=== PATIENT | female | born 1975 | race Caucasian/White ===

== ENCOUNTER → 2016-12-04 | Outpatient (CLI) | payer OTHER ==
[~2016-12-04] MED LIST: ACET50TA PO; DIBU0.5O TOP; DOCU10CA PO; IBUP80TA PO; VITAPRTA PO
--- NOTE | 2016-12-04 09:12 | REP ---
Clinical: Follow-up pulmonary nodules. Comparison: 01/24/2016, 06/06/2016. Findings: The small 5 mm subpleural nodule in the right upper lobe (image 53), and smaller 2 mm and 4 mm nodules in the anterior right upper lobe (image 58) appear less conspicuous and partially calcified suggesting chronic change. The remainder of lung de [place] cruz are well-aerated, symmetric, and clear. No further consolidation, nodule or mass lesion is appreciated. No pleural effusion/reaction or pneumothorax. Tracheobronchial tree is patent. No obvious adenopathy. Mediastinum appears normal by noncontrast evaluation. Surrounding musculoskeletal structures are intact. Impression: Previously identified right upper lobe nodules now appear minimally calcified and less conspicuous suggesting benign chronic changes. No new, significant mediastinal or pleuroparenchymal process appreciated. Signed by Eze Elliott MD 12/04/2016 09:04 A
== END ==
LOC: M RAD 08:23
PROVIDERS: ATTEND Internal Medicine Pulmonary Disease
DX: R91.8 Other nonspecific abnormal finding of lung field (principal)

== ENCOUNTER → 2017-09-02 | Outpatient (CLI) | payer OTHER ==
--- NOTE | 2017-09-02 13:24 | REP ---
Clinical: Follow-up pulmonary nodules. Comparison: 12/04/2016, 06/06/2016. Findings: Few small 2-3 mm nodules in the right middle lobe are again identified which remain stable and demonstrate small amounts of calcification suggesting chronic change related to granulomas disease. No new, acute, or significant nodule, consolidation or mass lesion. No pleural effusion/reaction or pneumothorax. Tracheobronchial tree is patent. No adenopathy. Mediastinum demonstrates normal thoracic aorta and heart/pericardium. Surrounding musculoskeletal structures are intact. Impression: A few 2-3 mm nodules in the right middle lobe remains stable and demonstrate small amount of calcification suggesting chronic changes related to prior granulomas disease. No significant mediastinal or pleuroparenchymal process noted. Signed by Eze Elliott MD 09/02/2017 01:15 P
== END ==
LOC: M RAD 12:46
PROVIDERS: ATTEND Internal Medicine Pulmonary Disease
DX: R91.8 Other nonspecific abnormal finding of lung field (principal)

== ENCOUNTER → 2018-03-04 | Outpatient (CLI) | payer OTHER | LOC: M RAD 10:26 | DX: R91.8 Other nonspecific abnormal finding of lung field (principal) | CPT/HCPCS: 71250 ==

== ENCOUNTER → 2018-07-25 | Outpatient (CLI) | payer OTHER | LOC: M RAD 10:52 | DX: N63.11 Unspecified lump in the right breast, upper outer quadrant (principal) | CPT/HCPCS: 77065 ==

== ENCOUNTER → 2018-08-04 | Outpatient (CLI) | payer OTHER ==
[~2018-08-04] MED LIST changes: -ACET50TA PO; -DIBU0.5O TOP; -DOCU10CA PO; -IBUP80TA PO; +LIDOCAINE 1% MDV 20ML VIAL As Ordered; -VITAPRTA PO
== END ==
LOC: M RADPRO 12:27
DX: D24.2 Benign neoplasm of left breast (principal)
CPT/HCPCS: 19083

== ENCOUNTER → 2019-04-13 | Outpatient (REF) | payer OTHER ==
[~2019-04-13] MED LIST changes: +DIBU0.5O TOP; +DOCU10CA PO; +IBUP80TA PO; -LIDOCAINE 1% MDV 20ML VIAL As Ordered; +MAPA500T2 PO; +VITAPRTA PO
[2019-04-16 14:24] LABS: HPV HYBRID CAPTURE II Negative (Negative)
== END ==
LOC: M LAB LCGH 13:25
PROVIDERS: ATTEND Family Medicine
DX: Z12.4 Encounter for screening for malignant neoplasm of cervix (principal)
CPT/HCPCS: 87624; G0123

== ENCOUNTER → 2019-07-08 | Outpatient (CLI) | payer OTHER ==
[2019-07-08 13:25] LABS: BASO % 0.8 % (0.0-1.0); EOS # 0.1 10^3/uL (0.0-0.5); HEMATOCRIT 42.6 % (36.0-47.0); HEMOGLOBIN 13.7 g/dl (12.0-15.5); LYMPH # 1.9 10^3/uL (1.5-5.0); MEAN CORPUSCULAR HEMOGLOBIN 29.9 pg (27.0-33.0); MEAN CORPUSCULAR HGB CONC 32.2 g/dl (32.0-36.5); MONO # 0.7 10^3/uL (0.0-0.8); MONO % 13.7 % (0.0-5.0); NEUTROPHILS # 2.5 10^3/uL (1.5-8.5); NEUTROPHILS % 47.3 % (36.0-66.0); PLATELET COUNT, AUTOMATED 294 10^3/uL (150-450); RED BLOOD COUNT 4.58 10^6/uL (4.00-5.40); WHITE BLOOD COUNT 5.2 10^3/uL (4.0-10.0)
[2019-07-08 13:29] LABS: ALT/SGPT 18 U/L (12-78); BILIRUBIN,TOTAL 0.3 MG/DL (0.2-1.0); BLOOD UREA NITROGEN 13 MG/DL (7-18); CALCIUM LEVEL 9.3 MG/DL (8.5-10.1); CARBON DIOXIDE LEVEL 24 MEQ/L (21-32); CHLORIDE LEVEL 108 MEQ/L (98-107); CREATININE FOR GFR 0.77 MG/DL (0.55-1.30); GLOMERULAR FILTRATION RATE > 60.0 (>58); GLUCOSE, FASTING 72 MG/DL (70-100); POTASSIUM SERUM 4.6 MEQ/L (3.5-5.1); RHEUMATOID FACTOR QUANT < 10.0 IU/ML (<15.0); SODIUM LEVEL 139 MEQ/L (136-145); TOTAL PROTEIN 7.3 GM/DL (6.4-8.2)
[2019-07-08 14:15] LABS: ERYTHROCYTE SEDIMENTATION RATE 5 mm/hr (0-20)
[2019-07-10 00:06] LABS: ANTINUCLEAR ANTIBODIES DIRECT Negative (Negative)
== END ==
LOC: M SMT 10:20
PROVIDERS: ATTEND Allergy & Immunology Allergy
DX: L59.8 Other specified disorders of the skin and subcutaneous tissue related to radiation (principal)

== ENCOUNTER → 2019-07-27 | Outpatient (REF) | LOC: M LAB LCGH 15:22 | PROVIDERS: ATTEND Family Medicine | DX: L72.0 Epidermal cyst (principal) ==

== ENCOUNTER → 2021-04-29 | Outpatient (CLI) | payer OTHER | LOC: M SLEEP 20:00 | PROVIDERS: ATTEND Nurse Practitioner Family | DX: G47.33 Obstructive sleep apnea (adult) (pediatric) (principal) ==

== ENCOUNTER → 2023-03-13 | Outpatient (CLI) | payer SELFPAY ==
[~2023-03-13] MED LIST changes: +ISOVUE-370 76% 100ML VIAL As Ordered ONE
== END ==
LOC: M RAD 14:43
PROVIDERS: ATTEND Otolaryngology
DX: R22.1 Localized swelling, mass and lump, neck (principal); H71.22 Cholesteatoma of mastoid, left ear
CPT/HCPCS: 70480; 70491; Q9967